=== PATIENT | male | born 2000 | race Caucasian/White ===

== ENCOUNTER 2022-12-23 20:22 | Emergency (ER) | payer BC, MEDICAID ==
[~2022-12-23] VITALS: Ht 182.9 cm; Wt 83.9 kg
[2022-12-23 20:30] VITALS: BP_SYST 134
[2022-12-23] MEDS ORDERED: LIDOCAINE 1%, 20 ML MDV 20 ML ONE (20:55)
[2022-12-23] MEDS ORDERED: IBUP-1969 PO (21:25)
[2022-12-23 21:36] VITALS: BP_SYST 134
== END 2022-12-23 21:36 | disposition home or self-care (01) ==
LOC: SED 20:22
DX: S61.307A Unspecified open wound of left little finger with damage to nail, initial encounter (principal); Z79.899 Other long term (current) drug therapy; W23.0XXA Caught, crushed, jammed, or pinched between moving objects, initial encounter; Y93.67 Activity, basketball; Y92.89 Other specified places as the place of occurrence of the external cause; Y99.8 Other external cause status
CPT/HCPCS: 99284; 26770; 73140; J2001